=== PATIENT | male | born 1955 | race Caucasian/White ===

== ENCOUNTER 2016-11-12 11:26 | Emergency (ER) | payer SELFPAY ==
[~2016-11-12] VITALS: Ht 188 cm; Wt 84.7 kg
[2016-11-12] MEDS ORDERED: SODIUM CHLORIDE FLUSH 10ML SYR IVF ONE (12:30)
[2016-11-12] MEDS ORDERED: ASPIRIN 81 MG TABLET CHEW PO ONE (12:30)
[2016-11-12] MEDS ORDERED: MORPHINE SULFATE 4 MG/ML, 1ML IVPush PRN (12:30)
[2016-11-12] MEDS ORDERED: ASPIRIN 81 MG TABLET CHEW ONE (12:34)
[2016-11-12] MEDS ORDERED: MORPHINE SULFATE 4 MG/ML, 1ML ONE (12:34)
[2016-11-12 12:53] LABS: ASPARTATE AMINO TRANSFERASE 19 U/L (15-37); BLOOD UREA NITROGEN 19 mg/dL (7-18)
[2016-11-12 13:03] LABS: IS PT STATUS REG ER OR PRE ER? YES
[2016-11-12 15:09] VITALS: BP 144/84
== END 2016-11-12 15:12 | disposition home or self-care (01) ==
LOC: ED 13:34
DX: R07.2 Precordial pain (principal)
CPT/HCPCS: 36415; 71010; 80053; 83605; 84484; 85025; 93005; 96372

== ENCOUNTER 2018-12-08 11:44 | Day surgery (SDC) | payer OTHER ==
[~2018-12-08] VITALS: Ht 188 cm; Wt 89.0 kg
[2018-12-08 11:54] VITALS: BP 154/97
== END 2018-12-08 18:25 | disposition home or self-care (01) ==
LOC: EDSTATUS 12:31 → SDC 13:13 → ED 16:22 → EDIP 16:25 → SDC 16:25 → UNDOADMIN 16:25 → SDC 18:25 → 4NOR 18:32 → EDIP 18:32 → UNDODISIN 22:00
PROVIDERS: ATTEND Emergency Medicine
DX: K35.80 Unspecified acute appendicitis (principal); Z72.0 Tobacco use
CPT/HCPCS: 36415; 44970; 71045; 71275; 74176; 80053; 81003; 83690; 84484; 85025; 88304; 93005; J0330; J1100; J1885; J2250; J2270; J2405; J2704; J3010; J3490; Q9967; G0378